=== PATIENT | male | born 1975 | race Caucasian/White ===

== ENCOUNTER 2016-12-24 18:36 | Inpatient (IN) | payer MEDICAID ==
[~2016-12-24] VITALS: Ht 185.4 cm; Wt 90.3 kg
[~2016-12-24 18:36] MED LIST: CLEOCIN150 MG PO; CYCLOBENZAPRINE10 MG PO; FLEXERIL10 MG PO; HYDROCODONE BIT1 T11 PO; LISINOPRIL2.5 MG PO; MOTRIN800 MG PO; NAPROSYN500 MG PO; NORFLEX100 MG PO; PHENERGAN W/DM120 ML PO; PREDNICOT10 MG PO; PROAIR HFA 90 MCG IN; PROAIR HFA0.09 MG/AC INH; Peridex 473 ML473 ML PO; VICODIN 500 MG-1 TAB PO; ZOFRAN4 MG PO
[2016-12-24 18:42] VITALS: BP 171/99
[2016-12-24 19:15] VITALS: BP 150/80
[2016-12-24 19:30] LABS: BASO # 0.1 10*3/uL (0.0-0.1); BASO % 0.6 % (0.0-1.0); EOS # 0.5 10*3/uL (0.0-0.4); EOS % 5.3 % (1.0-4.0); HEMOGLOBIN 15.1 g/dl (14.0-18.0); LYMPH # 4.1 10*3/uL (1.3-4.4); LYMPH % 45.9 % (27.0-41.0); MEAN CELL VOLUME 89.8 fl (80.0-94.0); MEAN CORPUSCULAR HGB 30.1 pg (27.0-31.0); MEAN CORPUSCULAR HGB CONC 33.6 g/dl (33.0-37.0); MEAN PLATELET VOLUME 8.9 fl (9.6-12.3); MONO # 0.6 10*3/uL (0.1-1.0); MONO % 6.7 % (3.0-9.0); NEUT # 3.6 10*3/uL (2.3-7.9); NEUT % 41.3 % (47.0-73.0); PLATELET COUNT AUTOMATED 283 10*3/uL (130-400); RED BLOOD COUNT 5.01 10*6/uL (4.50-5.90); RED CELL DISTRI WIDTH 12.7 % (0-14.5); WHITE BLOOD COUNT 8.8 10*3/uL (4.8-10.8)
[2016-12-24 19:40] LABS: INTERNATIONAL NORM RATIO 0.9 (2.0-3.5); PROTHROMBIN TIME 9.7 SECONDS (9.0-12.4)
[2016-12-24 19:46] LABS: ALBUMIN 3.7 gm/dl (3.1-4.5); ALKALINE PHOSPHATASE 89 U/L (45-117); BILIRUBIN, TOTAL 0.1 mg/dl (0.2-1.0); BUN 10 mg/dl (7-24); C-REACTIVE PROTEIN 1.17 MG/DL (0-0.3); CARBON DIOXIDE 25 mmol/L (21-32); CHLORIDE 110 mmol/L (98-107); EST GLOM FILT AFRICAN AMERICAN > 60 ml/min; GLUCOSE 110 mg/dL (65-99); MAGNESIUM 2.2 mg/dL (1.5-2.1); POTASSIUM 3.8 mmol/L (3.5-5.1); SGOT/AST 14 IU/L (3-35); SGPT/ALT 29 U/L (12-78); SODIUM 140 mmol/L (136-145); TOTAL PROTEIN 6.9 gm/dL (6.4-8.2)
[2016-12-24 19:51] LABS: TROPONIN I < 0.015 ng/ml (<0.045)
[2016-12-24 20:30] VITALS: BP 179/94
[2016-12-24] MEDS ORDERED: EFFEXOR XR37.5 M1 PO (21:06)
[2016-12-24] MEDS ORDERED: LISINOPRIL2.5 MG PO (21:06)
[2016-12-24] MEDS ORDERED: BUSPIRONE10 MG PO (21:07)
[2016-12-24] MEDS ORDERED: PROAIR HFA8.5 GM INH (21:09)
[2016-12-24] MEDS ORDERED: DUONEB 3 MG/3 ML3 M1 INH (21:11)
[2016-12-25] VITALS: BP 122/73
[2016-12-25 06:18] LABS: BASO % 0.2 % (0.0-1.0); HEMATOCRIT 42.5 % (42.0-52.0); HEMOGLOBIN 14.2 g/dl (14.0-18.0); LYMPH # 1.2 10*3/uL (1.3-4.4); LYMPH % 21.3 % (27.0-41.0); MEAN CORPUSCULAR HGB 30.1 pg (27.0-31.0); MEAN CORPUSCULAR HGB CONC 33.4 g/dl (33.0-37.0); MEAN PLATELET VOLUME 9.5 fl (9.6-12.3); MONO % 0.7 % (3.0-9.0); NEUT # 4.3 10*3/uL (2.3-7.9); NEUT % 77.3 % (47.0-73.0); PLATELET COUNT AUTOMATED 283 10*3/uL (130-400); RED BLOOD COUNT 4.72 10*6/uL (4.50-5.90); RED CELL DISTRI WIDTH 12.6 % (0-14.5); WHITE BLOOD COUNT 5.5 10*3/uL (4.8-10.8)
[2016-12-25 06:19] LABS: ALBUMIN 3.5 gm/dl (3.1-4.5); ALKALINE PHOSPHATASE 82 U/L (45-117); BILIRUBIN, TOTAL 0.2 mg/dl (0.2-1.0); BUN 11 mg/dl (7-24); CARBON DIOXIDE 23 mmol/L (21-32); CHLORIDE 109 mmol/L (98-107); CHOLESTEROL 161 mg/dL (<200); EST GLOM FILT AFRICAN AMERICAN > 60 ml/min; FREE T4 1.02 ng/dl (0.76-1.46); GLUCOSE 183 mg/dL (65-99); HDL CHOLESTEROL 47 mg/dl (40-60); LDL CHOLESTEROL 99 mg/dL (9-159); MAGNESIUM 1.9 mg/dL (1.5-2.1); POTASSIUM 3.9 mmol/L (3.5-5.1); SGOT/AST 13 IU/L (3-35); SGPT/ALT 28 U/L (12-78); SODIUM 140 mmol/L (136-145); TOTAL PROTEIN 6.9 gm/dL (6.4-8.2); TRIGLYCERIDES 75 mg/dl (<150); VLDL CHOLESTEROL 15 mg/dL (6-40)
[2016-12-25 06:24] LABS: THYROID STIM HORMONE (HS) 0.262 uIU/ml (0.358-4.75)
[2016-12-25 06:32] LABS: PROTHROMBIN TIME 10.1 SECONDS (9.0-12.4)
[2016-12-25 06:58] LABS: HEMOGLOBIN A1c 6.2 % (4.8-5.6)
[2016-12-25 08:00] VITALS: BP 131/76
[2016-12-25 16:00] VITALS: BP 134/86
[2016-12-25 20:00] VITALS: BP 136/86
[2016-12-26] VITALS: BP 120/60
[2016-12-26 08:00] VITALS: BP 141/96
[2016-12-26] MEDS ORDERED: LEVOFLOXACIN500 MG PO (11:02)
[2016-12-26] MEDS ORDERED: PREDNISONE10 MG PO (11:02)
[2016-12-26] MEDS ORDERED: NICODERM T (11:02)
[2016-12-26] MEDS ORDERED: NICODERM CQ1 EAC1 TD (11:03)
[2016-12-26] MEDS ORDERED: NICODERM CQ1 EAC2 TD (11:05)
[2016-12-26 15:14] LABS: FOLIC ACID 11.12 ng/mL (>5.38); VITAMIN D, 25-HYDROXY 30.4 ng/mL (30-100)
== END 2016-12-26 12:52 | disposition home or self-care (01) | DRG 203 ==
LOC: ED 18:36 → 4E 20:19 → EDHOLD 20:19 → 4E 20:26
PROVIDERS: Hospitalist; Student in an Organized Health Care Education/Training Program
DX: J45.901 Unspecified asthma with (acute) exacerbation (principal); Z93.0 Tracheostomy status; E83.39 Other disorders of phosphorus metabolism; F41.9 Anxiety disorder, unspecified; R73.9 Hyperglycemia, unspecified; F17.200 Nicotine dependence, unspecified, uncomplicated; Z79.899 Other long term (current) drug therapy; Z88.5 Allergy status to narcotic agent

== ENCOUNTER 2017-03-21 12:25 | Emergency (ER) | payer MEDICAID ==
[~2017-03-21] VITALS: Ht 182.8 cm; Wt 93.0 kg
[~2017-03-21 12:25] MED LIST changes: +BUSPIRONE10 MG PO; +DUONEB 3 MG/3 ML3 M1 INH; +EFFEXOR XR37.5 M1 PO; +LEVOFLOXACIN500 MG PO; +NICODERM CQ1 EAC1 TD; +NICODERM CQ1 EAC2 TD; +NICODERM T; +PREDNISONE10 MG PO; +PROAIR HFA8.5 GM INH
== END 2017-03-21 14:48 | disposition home or self-care (01) ==
LOC: ED 12:25
DX: S70.12XA Contusion of left thigh, initial encounter (principal); F17.210 Nicotine dependence, cigarettes, uncomplicated; Z98.890 Other specified postprocedural states; Z90.49 Acquired absence of other specified parts of digestive tract; Z88.5 Allergy status to narcotic agent; Z79.899 Other long term (current) drug therapy; W22.8XXA Striking against or struck by other objects, initial encounter; Y93.89 Activity, other specified; Y92.89 Other specified places as the place of occurrence of the external cause; Y99.9 Unspecified external cause status

== ENCOUNTER 2018-08-13 12:13 | Emergency (ER) | payer SELFPAY ==
[~2018-08-13] VITALS: Ht 182.8 cm; Wt 99.8 kg
[~2018-08-13 12:13] MED LIST changes: +PREDNISONE50 MG PO
[2018-08-13] MEDS ORDERED: ZITHROMAX250 MG PO (13:41)
== END 2018-08-13 13:59 | disposition home or self-care (01) ==
LOC: ED 12:13
DX: J45.909 Unspecified asthma, uncomplicated (principal); F17.200 Nicotine dependence, unspecified, uncomplicated; Z93.0 Tracheostomy status; Z90.49 Acquired absence of other specified parts of digestive tract; Z88.6 Allergy status to analgesic agent; Z79.899 Other long term (current) drug therapy

== ENCOUNTER 2018-11-13 06:37 | Inpatient (IN) | payer SELFPAY ==
[2018-11-13] VITALS (7 sets, daily range): BP systolic 127–161; BP diastolic 78–107
[~2018-11-13] VITALS: Ht 182.8 cm; Wt 94.0 kg
--- NOTE | ~2018-11-13 | EKG ---
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 : 1975 Requested By: TRISTAN BONILLA Order Number: [id number] Reading MD: Haley Nava MD Measurements Intervals [place] Rate: 68 P: 31 [place]: 148 QRS: 31 QRSD: 87 T: 64 QT: 425 QTc: 453 Interpretive Statements Sinus rhythm Posterior infarct, old Borderline repol abnrm, anterolateral leads Baseline wander in lead(s) V3,V4,V5 Compared to ECG 12/26/2017 06:41:53 Myocardial infarct finding now present T-wave abnormality no longer present Electronically Signed On 11-13-2018 12:34:19 PDT by Haley Nava MD CM:EKGRPT:ELECTROCARDIOGRAM REPORT [id number] 1234 TRISTAN BONILLA MD EPIPHANY DRAFT REPORT TRISTAN BONILLA MD
--- NOTE | ~2018-11-13 | EKG ---
[place], [place] ELECTROCARDIOGRAM REPORT NAME: TAWNY RADER UNIT #: [id number] ROOM: 502 DOCTOR: JEANINE DRAFT REPORT BIRTHDATE: [birth year] [facility] Test Date: 2018-11-13 Test Time: 09:35:16 Pat Name: TAWNY RADER Department: Room: [facility] Gender: M [employer]: : 1975 Requested By: TRISTAN BONILLA Order Number: [id number] Reading MD: Haley Nava MD Measurements Intervals [place] Rate: 67 P: 39 PA: 140 QRS: 41 QRSD: 89 T: 69 QT: 429 QTc: 453 Interpretive Statements Sinus rhythm Compared to ECG 12/26/2017 06:41:53 T-wave abnormality no longer present Electronically Signed On 11-13-2018 12:32:39 PDT by Haley Nava MD CM:EKGRPT:ELECTROCARDIOGRAM REPORT [id number] 1232 TRISTAN BONILLA MD EPIPHANY DRAFT REPORT TRISTAN BONILLA MD
--- NOTE | ~2018-11-13 | EKG ---
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: : 1975 Requested By: TRISTAN BONILLA Order Number: [id number] Reading MD: Haley Nava MD Measurements Intervals [place] Rate: 80 P: 20 [place]: 142 QRS: 43 QRSD: 88 T: 84 QT: 380 QTc: 439 Interpretive Statements Sinus rhythm Probable anteroseptal infarct, old Borderline ST depression, anterolateral leads Baseline wander in lead(s) V6 Compared to ECG 12/26/2017 06:41:53 Myocardial infarct finding now present ST (T wave) deviation now present T-wave abnormality no longer present Electronically Signed On 11-13-2018 12:32:07 PDT by Haley Nava MD CM:EKGRPT:ELECTROCARDIOGRAM REPORT [id number] 1232 TRISTAN BONILLA MD EPIPHANY DRAFT REPORT TRISTAN BONILLA MD
[~2018-11-13 06:37] MED LIST changes: +ZITHROMAX250 MG PO
[2018-11-13 06:55] LABS: BASO # 0.1 10*3/uL (0.0-0.1); BASO % 0.6 % (0.0-1.0); EOS # 0.3 10*3/uL (0.0-0.4); HEMATOCRIT 46.4 % (42.0-52.0); HEMOGLOBIN 15.4 g/dl (14.0-18.0); LYMPH # 4.7 10*3/uL (1.3-4.4); LYMPH % 50.6 % (27.0-41.0); MEAN CELL VOLUME 90.3 fl (80.0-94.0); MEAN CORPUSCULAR HGB CONC 33.2 g/dl (33.0-37.0); MEAN PLATELET VOLUME 8.9 fl (9.6-12.3); MONO # 0.6 10*3/uL (0.1-1.0); MONO % 6.1 % (3.0-9.0); NEUT # 3.7 10*3/uL (2.3-7.9); NEUT % 39.5 % (47.0-73.0); PLATELET COUNT AUTOMATED 303 10*3/uL (130-400); RED BLOOD COUNT 5.14 10*6/uL (4.50-5.90); RED CELL DISTRI WIDTH 12.4 % (0-14.5); WHITE BLOOD COUNT 9.3 10*3/uL (4.8-10.8)
[2018-11-13 07:05] LABS: ACT PARTIAL THROMBO TIME 24.8 SECONDS (20.0-32.1); INTERNATIONAL NORM RATIO 0.9 (2.0-3.5)
[2018-11-13 07:10] LABS: ALBUMIN 3.6 gm/dl (3.1-4.5); ALKALINE PHOSPHATASE 85 U/L (45-117); BUN 13 mg/dl (7-24); CHLORIDE 113 mmol/L (98-107); CREATININE 1.01 mg/dL (0.70-1.30); POTASSIUM 3.8 mmol/L (3.5-5.1); SGOT/AST 12 IU/L (3-35); SGPT/ALT 33 U/L (12-78); SODIUM 144 mmol/L (136-145); TOTAL PROTEIN 6.6 gm/dL (6.4-8.2)
[2018-11-13 07:11] LABS: TROPONIN I < 0.015 ng/ml (<0.045)
--- NOTE | 2018-11-13 08:27 | NUR ---
PT STATES PAIN DOWN TO 3/10
--- NOTE | 2018-11-13 08:28 | NUR ---
O2 2LNC INITIATED FOR COMFORT
--- NOTE | 2018-11-13 08:50 | NUR ---
Time: 849 A 43 year old MALE admitted to 5E under services of YUMIKO RITTER DO for OBSERVATION. Pt. arrived via bed from ER. Chief complaint: Chest pain intermittently for 2-3 months. PT oriented to room, unit & call light. Questions answered. Initial assessment completed - see admission assessment. PT remains pleasant & cooperative. He states he still has chest discomfort but the pain is not like it was earlier today. PT is noted to be hypertensive at this time which he states is normal for him. He states he used to take Lisinopril but stopped taking it because it gave him headaches. quality assurance monitor body applied to PT, he is NSR with a heart rate in the 60's. He denies any needs at this time. Will continue to monitor PT. DYLLAN LOUISE
[2018-11-13] MEDS ORDERED: TRAZODONE50 MG PO (09:04)
[2018-11-13] MEDS ORDERED: LISINOPRIL5 MG PO (09:05)
--- NOTE | 2018-11-13 09:31 | NUR ---
DR. TALAMANTES NOTIFIED MED REC IS UP TO DATE. ALSO NOTIFIED OF ELEVATED BP OF 154/102. NO NEW ORDERS AT THIS TIME. HE STATES THEY WILL BE AROUND TO SEE HIM. WILL CONTINUE TO MONITOR PT.
--- NOTE | 2018-11-13 09:31 | NUR ---
PT NOTED TO BE HYPERTENSIVE AT THIS TIME. PT STATES HE USED TO TAKE LISINOPRIL BUT HAS NOT HAD IT FILLED IN A COUPLE MONTHS BECAUSE IT GIVES HIM HEADACHES. DR. TALAMANTES NOTIFIED.
--- NOTE | 2018-11-13 10:22 | NUR ---
DR. TALAMANTES NOTIFIED OF CRITICAL TROPONIN RESULT OF 0.151. NO NEW ORDERS GIVEN AT THIS TIME. WILL CONTINUE TO MONITOR PT.
--- NOTE | 2018-11-13 10:47 | NUR ---
DR. BRITO NOTIFIED OF CONSULT, STATES THEY WILL BE HAPPY TO SEE HIM. NOTIFIED OF TROPONIN TRENDING UP. NO NEW ORDERS GIVEN.
--- NOTE | 2018-11-13 12:57 | NUR ---
DR. TALAMANTES NOTIFIED OF CRITICAL TROPONIN RESULT OF 1.020. STATES NOT NOTIFY CARDIOLOGY. NO NEW ORDERS GIVEN
--- NOTE | 2018-11-13 13:09 | NUR ---
DR. BRITO NOTIFIED OF CRITICAL TROPONIN RESULT OF 1.020. HE STATES THE STRESS TEST IS GOING TO BE CANCELLED, PT WILL NEED A HEART CATH. HE STATES HE WILL BE UP TO SEE THE PT SHORTLY.
--- NOTE | 2018-11-13 13:43 | NUR ---
HEPARIN PROTOCOL INITIATED PER ORDER. VERIFIED BY FRANCOISE JENKINS. WILL MONITOR PT.
--- NOTE | 2018-11-13 15:10 | NUR ---
Discharge instructions reviewed with patient. Patient receptive and verbalizes understanding. PT sent to [facility] for heart cath. Written instructions given to patient. Transferred via EMS to [facility]. Report given to EMS. DYLLAN LOUISE
--- NOTE | 2018-11-13 15:20 | NUR ---
REPORT CALLED TO RN AT [facility]
== END 2018-11-13 15:10 | disposition other institution (70) | DRG 282 ==
LOC: ED 06:37 → 5E 08:38 → EDHOLD 08:38 → 5E 08:39
PROVIDERS: Emergency Medicine Emergency Medical Services; ADMIT Internal Medicine
DX: I21.4 Non-ST elevation (NSTEMI) myocardial infarction (principal); F41.9 Anxiety disorder, unspecified; I10 Essential (primary) hypertension; E83.41 Hypermagnesemia; M54.16 Radiculopathy, lumbar region; R73.9 Hyperglycemia, unspecified; F17.208 Nicotine dependence, unspecified, with other nicotine-induced disorders; Z71.6 Tobacco abuse counseling; Z88.5 Allergy status to narcotic agent; Z82.49 Family history of ischemic heart disease and other diseases of the circulatory system; Z80.9 Family history of malignant neoplasm, unspecified; Z93.0 Tracheostomy status